=== PATIENT | female | born 2000 ===

== ENCOUNTER 2022-09-11 04:37 | Inpatient (IN) ==
[2022-09-11] MEDS ORDERED: miSOPROStoL 200 MCG TABLET RECTAL PRN (05:17)
[2022-09-11] MEDS ORDERED: METHYLERGONOVINE 0.2 MG/1 ML AMP IM PRN (05:17)
[2022-09-11] MEDS ORDERED: OXYTOCIN/LR 20 UNIT/1,000 ML BAG IV ONE ×2 (05:17→16:32)
[2022-09-11] MEDS ORDERED: MEPERIDINE 25 MG/1 ML VIAL IV PRN (05:17)
[2022-09-11] MEDS ORDERED: MEPERIDINE 50 MG/1 ML VIAL IV PRN (05:17)
[2022-09-11] MEDS ORDERED: TRANEXAMIC ACID 1,000 MG in SODIUM CHLORIDE 0.9% 100 ML IV PRN (05:17)
[2022-09-11] MEDS ORDERED: BUTORPHANOL 2 MG/ML VIAL IV PRN (05:17)
[2022-09-11] MEDS ORDERED: ACETAMINOPHEN 500 MG TABLET PO PRN (05:17)
[2022-09-11] MEDS ORDERED: BUTORPHANOL 1 MG/ML VIAL IV PRN (05:17)
[2022-09-11] MEDS ORDERED: CARBOPROST TROMETHAMINE 250 MCG/ML AMP IM PRN (05:17)
[2022-09-11] MEDS ORDERED: ONDANSETRON 4 MG/2 ML VIAL IV PRN ×2 (05:17→16:32)
[2022-09-11] MEDS: LACTATED RINGERS 1,000 ML IV SCH ×2 (05:20→06:56)
[2022-09-11 06:12] LABS: Basophils % 0.2 % (0.0-0.8); Eosinophils # 0.1 10*3/uL (0.0-0.87); Eosinophils % 1.6 % (0.00-10.9); Hematocrit 28.9 VOL% (35.7-47.0); Hemoglobin 9.2 GM/DL (12.0-16.0); Immature Granulocytes % 0.5 %; Immature Granulocytes Absolute 0.03 #; Lymphocytes # 0.9 10*3/uL (1.4-4.0); Lymphocytes % 14.9 % (21.3-54.2); Mean Corpuscular HGB Conc 31.8 GM/DL (32-36); Mean Corpuscular Volume 82.3 FL (87-102); Mean Platelet Volume 11.8 FL (9.6-12.0); Monocytes # 0.5 10*3/uL (0.11-0.8); Monocytes % 8.6 % (1.7-12.7); Neutrophils % 74.2 % (38.7-73.9); Platelet Count 177 T/CUMM (130-400); Red Blood Count 3.51 MC/CUMM (3.8-5.5); Red Cell Distribution Width 13.9 % (9.3-17.3); White Blood Count 6.3 T/CUMM (4-12)
[2022-09-11] MEDS ORDERED: AMPICILLIN INJ 2,000 MG in SODIUM CHLORIDE 0.9% 100 ML IV ONE (06:31)
[2022-09-11 06:52] LABS: Alanine Aminotransferase 17 U/L (13-56); Albumin 2.7 G/DL (3.4-5.0); Alkaline Phosphatase 188 U/L (45-117); Aspartate Amino Transferase 28 U/L (0-37); Bilirubin,Total < 0.39 MG/DL (0.20-1.00); Blood Urea Nitrogen 8 MG/DL (7-18); Calcium 8.8 MG/DL (8.5-10.1); Carbon Dioxide 19 MMOL/L (21-32); Chloride 111 MMOL/L (98-107); Glucose 117 MG/DL (74-106); Osmolality,Calculated 279.3 MOS/KG (273-304); Potassium 3.8 MMOL/L (3.5-5.1); Sodium 141 MMOL/L (136-145); Total Protein 6.5 G/DL (6.4-8.2)
[2022-09-11] MEDS ORDERED: OXYTOCIN/LR 20 UNIT/1,000 ML BAG IV SCH (07:00)
[2022-09-11 07:37] LABS: RPR Confirm - Less than 1 yr NONREACTIVE (Nonreactive)
[2022-09-11] MEDS ORDERED: LACTATED RINGERS 1,000 ML IV SCH (09:00)
[2022-09-11] MEDS ORDERED: ePHEDrine 50 MG/ML VIAL IV PRN (09:00)
[2022-09-11] MEDS ORDERED: CITRIC ACID/SODIUM CITRATE 30 ML UDCUP PO ONE (09:00)
[2022-09-11] MEDS ORDERED: FAMOTIDINE 20 MG/2 ML VIAL IV ONE (09:00)
[2022-09-11] MEDS ORDERED: LACTATED RINGERS 1,000 ML IV ONE (09:00)
[2022-09-11] MEDS ORDERED: NALOXONE 0.4 MG/ML VIAL IV PRN (09:01)
[2022-09-11] MEDS ORDERED: PROMETHAZINE 25 MG/1 ML VIAL IM ONE (09:01)
[2022-09-11] MEDS ORDERED: LACTATED RINGERS 250 ML IV PRN (09:01)
[2022-09-11] MEDS ORDERED: hydrOXYzine HCL 25 MG/1 ML VIAL IM PRN (09:01)
[2022-09-11] MEDS ORDERED: diphenhydrAMINE 50 MG/1 ML VIAL IV PRN ×2 (09:01)
[2022-09-11] MEDS ORDERED: fentaNYL 2 MCG/ROPIV 0.2% EPID 100 ML EPIDURAL SCH (09:30)
[2022-09-11] MEDS ORDERED: AMPICILLIN INJ 1,000 MG in SODIUM CHLORIDE 0.9% 100 ML IV SCH (11:00)
[2022-09-11 11:11] LABS: Bilirubin,Urine Negative (Negative); Blood, Urine Negative (Negative); Glucose,Urine (UA) Negative (Negative); Ketones,Urine Negative (Negative); Mucus,Urine Occasional /LPF (Occasional); Nitrite,Urine Negative (Negative); Protein,Urine Negative (Negative); RBC,Urine <1 /HPF (0-4); Urine Appearance CLEAR (Clear); Urine Color Yellow (Yellow); Urine Specific Gravity 1.012 (1.001-1.035); Urine Urobilinogen < 2.0 eU/dL (<2.0)
[2022-09-11] MEDS ORDERED: fentaNYL 100 MCG/2 ML VIAL ONE (11:33)
[2022-09-11] MEDS ORDERED: LIDOCAINE MPF 2% /EPI 20 ML VIAL ONE (11:34)
[2022-09-11] MEDS ORDERED: miSOPROStoL 200 MCG TABLET ONE (13:45)
[2022-09-11] MEDS ORDERED: TRANEXAMIC ACID 1,000 MG/10 ML VIAL ONE (13:46)
[2022-09-11] MEDS ORDERED: SODIUM CHLORIDE 0.9% 0 ML IV ONE (13:46)
[2022-09-11] MEDS ORDERED: CARBOPROST TROMETHAMINE 250 MCG/ML AMP IM ONE (13:47)
[2022-09-11] MEDS ORDERED: METHYLERGONOVINE 0.2 MG/1 ML AMP ONE (13:47)
[2022-09-11 15:00] LABS: Cord Venous Blood HCO3 22.2 MMOL/L; Cord Venous Blood PCO2 44.9 MMHG; Cord Venous Blood PO2 34.5
[2022-09-11] MEDS ORDERED: LABETALOL 100 MG/20 ML VIAL IV ONE (16:09)
[2022-09-11] MEDS ORDERED: RHO(D) IMMUNE GLOBULIN 300 MCG SYRINGE IM ONE (16:32)
[2022-09-11] MEDS ORDERED: oxyCODONE/ACETAMINOPHEN 5-325 MG TABLET PO PRN (16:32)
[2022-09-11] MEDS ORDERED: BENZOCAINE 20%/MENTHOL 0.5% SPRAY 56 GM CAN TOP PRN (16:32)
[2022-09-11] MEDS ORDERED: WITCH HAZEL PADS 100/JAR TOP PRN (16:32)
[2022-09-11] MEDS ORDERED: BISACODYL 10 MG SUPP RECTAL PRN (16:32)
[2022-09-11] MEDS ORDERED: LANOLIN 50% CREAM 0.3 OZ TUBE TOP PRN (16:32)
[2022-09-11] MEDS ORDERED: MEASLES/MUMPS/RUBELLA VACCINE 0.5 ML VIAL SUBCUT ONE (16:32)
[2022-09-11] MEDS ORDERED: ACETAMINOPHEN 325 MG TABLET PO PRN (16:32)
[2022-09-11] MEDS ORDERED: HYDROCORTISONE 2.5% RECTAL CREAM 30 GM TUBE TOP PRN (16:32)
[2022-09-11] MEDS ORDERED: IBUPROFEN 800 MG TABLET PO PRN (16:32)
[2022-09-11] MEDS ORDERED: DIPH/TET/ACEL PERT BOOSTER VACCINE 0.5 ML VIAL IM ONE (16:32)
[2022-09-11] MEDS ORDERED: ALUM/MAG/SIMETH/LIDO VISC 1:1 30 ML BOTTLE PO ONE (16:47)
[2022-09-11] MEDS ORDERED: LORazepam 2 MG/1 ML VIAL IV ONE ×2 (16:57→23:48)
[2022-09-11] MEDS: oxyCODONE/ACETAMINOPHEN 5-325 MG TABLET PO PRN (21:40)
[2022-09-11] MEDS: DOCUSATE SODIUM 100 MG CAPSULE PO SCH (23:02)
[2022-09-12 06:10] LABS: Basophils % 0.2 % (0.0-0.8); Eosinophils # 0.1 10*3/uL (0.0-0.87); Hematocrit 24.9 VOL% (35.7-47.0); Immature Granulocytes % 0.4 %; Immature Granulocytes Absolute 0.04 #; Lymphocytes # 1.1 10*3/uL (1.4-4.0); Lymphocytes % 10.9 % (21.3-54.2); Mean Corpuscular HGB Conc 32.1 GM/DL (32-36); Mean Corpuscular Volume 82.2 FL (87-102); Monocytes # 0.8 10*3/uL (0.11-0.8); Monocytes % 8.5 % (1.7-12.7); Platelet Count 138 T/CUMM (130-400); Red Blood Count 3.03 MC/CUMM (3.8-5.5); Red Cell Distribution Width 13.9 % (9.3-17.3); White Blood Count 9.6 T/CUMM (4-12)
[2022-09-12] MEDS: oxyCODONE/ACETAMINOPHEN 5-325 MG TABLET PO PRN (07:06)
[2022-09-12] MEDS: FERROUS SULFATE 325 MG TABLET PO SCH ×2 (10:21→21:21)
[2022-09-12] MEDS: DOCUSATE SODIUM 100 MG CAPSULE PO SCH ×2 (10:21→21:22)
[2022-09-13] MEDS ORDERED: hydrOXYzine HCL 25 MG TABLET PO PRN (09:49)
[2022-09-13] MEDS ORDERED: hydrOXYzine HCL 25 MG TABLET ONE (09:50)
[2022-09-13] MEDS: DOCUSATE SODIUM 100 MG CAPSULE PO SCH (09:53)
[2022-09-13] MEDS: FERROUS SULFATE 325 MG TABLET PO SCH (09:53)
[2022-09-13 10:35] VITALS: BP 119/75
== END 2022-09-13 13:35 | disposition home or self-care (01) | DRG 560 ==
LOC: N.OBOUT 04:37 → N.LD 04:46 → N.OB 22:20
PROVIDERS: ADMIT Obstetrics & Gynecology; ATTEND Obstetrics & Gynecology